=== PATIENT | female | born 1950 | race Caucasian/White ===

== ENCOUNTER 2017-10-12 10:14 | Day surgery (SDC) | payer MEDICARE, BC, OTHER ==
[2017-10-09 13:32] VITALS: BMI 23.6
--- NOTE | 2017-10-12 13:07 | OP ---
DATE OF PROCEDURE: 10/12/2017 SURGEON: Dr. Diego Morales PREOPERATIVE DIAGNOSES: 1. Intractable gastroesophageal reflux disease. 2. Dysphagia. PROCEDURE: After informed consent was obtained, the patient was placed in left lateral decubitus pos ition. Anesthesia was administered per the Anesthesia Department. Forward-viewing endoscope was ins erted into the esophagus under direct visualization with ease and passed to the second portion of the duodenum with ease. Second portion of the duodenum and duodenal bulb were normal. Pylorus, antrum, body, fundus, and cardia were normal. There was a small hiatal hernia noted. The esophagus showed a narrowing at the distal esophagus and this was dilated with a 54-German Pedraza dilator. Some mild post-dilatation bleeding was noted. Biopsies were taken from the proximal and distal esophagus to r ule out eosinophilic esophagitis. ASSESSMENT: 1. Esophageal stricture - status post dilatation. 2. Small hiatal hernia. 3. Minimal furrows in the esophagus - status post biopsy for eosinophilic esophagitis. RECOMMENDATIONS: 1. Await histopathology. 2. Repeat dilatations as needed. 3. Follow up in my office in 1 months' time.
[2017-10-12] MEDS ORDERED: PROPOFOL 200 MG/20 ML VIAL ONE (16:58)
== END 2017-10-12 13:30 | disposition home or self-care (01) ==
LOC: SDC 10:14
PROVIDERS: ATTEND Internal Medicine Gastroenterology
PROC: 0DB58ZX Excision of Esophagus, Via Natural or Artificial Opening Endoscopic, Diagnostic (ICD-10-PCS; principal; 2017-10-12)
PROC: 0D758ZZ Dilation of Esophagus, Via Natural or Artificial Opening Endoscopic (ICD-10-PCS; 2017-10-12)
DX: Z91.012 Allergy to eggs; K21.0 Gastro-esophageal reflux disease with esophagitis; K44.9 Diaphragmatic hernia without obstruction or gangrene; K22.2 Esophageal obstruction; Z91.010 Allergy to peanuts; Z91.018 Allergy to other foods; Z91.011 Allergy to milk products
CPT/HCPCS: 88305; 88312; 88313; J2704

== ENCOUNTER 2017-12-11 09:50 | Outpatient (CLI) | payer MEDICARE, BC, OTHER ==
--- NOTE | 2017-12-11 11:22 | RAD ---
LUMBAR SPINE 3 VIEWS: Date: 12/11/17 HISTORY: Vertebral body heights are maintained. There is disc space narrowing at the lumbosacral junction with 0.8 cm spondylolisthesis on the neutral view. Upon extension, it increases to 1.4 cm. Upon flexion, it remains 0.8 cm. Osteophytosis is present throughout the lower facets. IMPRESSION: Lower lumbar spondylosis including translational motion at Grade II spondylolisthesis L4-5 level as d etailed above. POS: [facility]
--- NOTE | 2017-12-11 11:29 | RAD ---
CERVICAL SPINE 3 VIEWS: Date: 12/11/17 HISTORY: Neck pain. FINDINGS: Vertebral body heights and alignment are maintained. Mild disc space narrowing at the C5-6 level. Latisha y mild osteophytosis. No abnormal translational motion upon flexion or extension. IMPRESSION: Mild cervical spondylosis. POS: [facility]
--- NOTE | 2017-12-11 12:23 | MRI ---
MRI CERVICAL SPINE WITHOUT IV CONTRAST: Date: 12/11/17 HISTORY: Spondylolisthesis cervical region. Patient complains of neck pain with spasms between shoulder blades . Numbness and tingling in fingers for several years. COMPARISON: None available. FINDINGS: Cervicomedullary junction has a normal MRI appearance. There is decreased signal intensity seen throughout the bone marrow of the cervical and visualized up per thoracic spine, which is nonspecific. C2-3 Level: There is no significant disc bulge or disc herniation. Central spinal canal and neural foramina are p atent. C3-4 Level: Mild facet degenerative changes are seen on the left. There is no significant disc bulge or disc zoe iation. The central spinal canal and neural foramina are patent. C4-5 Level: There is minimal disc bulge, but there is no significant narrowing of the central spinal canal. The n eural foramina are patent. C5-6 Level: There is mild loss of intervertebral disc height. There is mild disc osteophyte complex with uncinate process hypertrophy. Facet degenerative changes are present. There is mild left and mild to moderate right-sided neural foraminal narrowing. There is mild effacement of the ventral aspect of the subara chnoid space. C6-7 Level: There is a mild broad based disc osteophyte complex. There is effacement of the ventral subarachnoid space encroaching on the anterior aspect of the spinal cord. Neural foramina are patent. C7-T1 Level: There is no disc bulge or disc herniation. Central spinal canal and neural foramina are patent. Paravertebral soft tissues have a normal MRI appearance. IMPRESSION: 1. Decreased signal intensity involving the bone marrow. This is overall nonspecific but can be seen with anemia of chronic disease; although, marrow infiltrative process is also a possibility. 2. Mild disc degenerative changes in the cervical spine, greatest at the C5-6 level. POS: [facility]
--- NOTE | 2017-12-11 13:30 | MRI ---
MRI LUMBAR SPINE NONCONTRAST: Date: 12/11/17 HISTORY: Low back pain. Spondylolisthesis. FINDINGS: Conus medullaris has a normal appearance. There is near complete loss of T1 and T2 signal of the bone marrow. Images including the retroperitoneum show small cysts associated with the kidneys. T12-L1, L1-2, L2-3: Mild osteophytosis. Central canal and neural foramina are patent. L3-4: Mild disc bulge. Circumferential degenerative changes with mild stenosis of the central canal and eac h neural foramen. L4-5: Grade I degenerative spondylolisthesis with disc space narrowing. Posterior pseudobulge of the disc. Circumferential degenerative changes with severe stenosis of the central canal and each neural forame n. L5-S1: Mild osteophytosis. Thecal sac is patent. Osteophytosis of the facets. Moderate left foraminal stenos is. IMPRESSION: 1. Degenerative changes most severe at the L4-5 level with severe stenosis of the central canal and neural foramina. 2. Diffuse bone marrow signal abnormality may represent red marrow edema from severe anemia, fibrosi s, or metabolic disease. POS: [facility]
== END 2017-12-11 09:51 | disposition home or self-care (01) ==
LOC: TBSIIMAG 09:50
PROVIDERS: ATTEND Specialist
DX: M47.892 Other spondylosis, cervical region (principal); M47.896 Other spondylosis, lumbar region; M48.061 Spinal stenosis, lumbar region without neurogenic claudication; M99.83 Other biomechanical lesions of lumbar region; M43.12 Spondylolisthesis, cervical region; M43.16 Spondylolisthesis, lumbar region
CPT/HCPCS: 72040; 72100; 72141; 72148

== ENCOUNTER 2018-02-17 10:11 | Day surgery (SDC) | payer MEDICARE, BC, OTHER ==
[2018-02-16 10:39] VITALS: BMI 24.7
--- NOTE | 2018-02-17 12:39 | OP ---
DATE OF PROCEDURE: 02/17/2018 SURGEON: Dr. Diego Morales PREOPERATIVE DIAGNOSIS: Dysphagia. PROCEDURE: After informed consent was obtained, the patient placed in left lateral decubitus positio n. Anesthesia was administered per the Anesthesia Department. Forward-viewing endoscope was inserte d into the esophagus under direct visualization with ease and passed to the second portion of the duo denum with ease. Second portion of the duodenum and duodenal bulb were normal. The pylorus, antrum, body, fundus, and cardia were normal. Retroflexion of stomach was normal. Esophagus was normal thr oughout. A small hiatal hernia was present. A 54-Romanian Pedraza dilator was passed with little or n o resistance. Reinsertion of the endoscope showed some mild post-dilatation changes at the distal es ophagus. A 60-Romanian Pedraza was passed with some moderate resistance. Reinsertion of the endoscope showed post-dilatations at the GE junction and the upper esophagus. ASSESSMENT: 1. Esophageal strictures - status post dilatation with a 60-Romanian Pedraza dilator. 2. Small hiatal hernia. 3. Otherwise normal esophagogastroduodenoscopy. RECOMMENDATIONS: 1. Continue Zegerid. 2. Soft diet.
[2018-02-17] MEDS ORDERED: PROPOFOL 200 MG/20 ML VIAL ONE (14:50)
== END 2018-02-17 13:13 | disposition home or self-care (01) ==
LOC: SDC 10:11
PROVIDERS: ATTEND Internal Medicine Gastroenterology
PROC: 0D747ZZ Dilation of Esophagogastric Junction, Via Natural or Artificial Opening (ICD-10-PCS; principal; 2018-02-17)
PROC: 0DJ08ZZ Inspection of Upper Intestinal Tract, Via Natural or Artificial Opening Endoscopic (ICD-10-PCS; 2018-02-17)
DX: K22.2 Esophageal obstruction (principal); K44.9 Diaphragmatic hernia without obstruction or gangrene; Z91.012 Allergy to eggs; Z91.011 Allergy to milk products; Z91.010 Allergy to peanuts; Z88.0 Allergy status to penicillin; Z91.018 Allergy to other foods
CPT/HCPCS: J2704

== ENCOUNTER 2018-10-01 08:05 | Day surgery (SDC) | payer MEDICARE, BC, OTHER ==
[2018-09-30 15:29] VITALS: BMI 23.9
[2018-10-01] MEDS ORDERED: PROPOFOL 200 MG/20 ML VIAL ONE (10:39)
[2018-10-01] MEDS ORDERED: Lidocaine 1% PF 5 ML VIAL ONE (10:39)
[2018-10-01] MEDS ORDERED: Succinylcholine Chloride 20 MG/ML 10 ml SYRINGE FS ONE (10:39)
[2018-10-01] MEDS ORDERED: Benzocaine 20% Spray 60 ML CAN ONE (10:42)
--- NOTE | 2018-10-01 13:39 | OP ---
DATE OF PROCEDURE: 10/01/2018 INDICATION FOR PROCEDURE: Dysphagia, gastroesophageal reflux disease. PROCEDURE PERFORMED: Esophagogastroduodenoscopy with biopsy. DESCRIPTION OF PROCEDURE: After the risks and benefits of the procedure were explained to the patient including risks of bleeding, infection, perforation, reactions to anesthesia, aspiration and/or pain, informed consent was obtained. The patient was then taken to the endoscopy suite, where deep sedation was administered via propofol and anesthesia support. Once adequate sedation was achieved, the standard gastroscope was introduced into the mouth with intubation of the esophagus, stomach, and the proximal small intestine with the findings listed below. Adequate views of the upper GI tract were obtained, although the patient did experience acute oxygen desaturation at the beginning of the procedure that required her to be placed on a bag-mask ventilation with decrease of oxygen saturations to approximately 20%. However, she responded promptly to mask ventilation with the decreased oxygenation lasting no longer than 1 to 1.5 minutes. At which point, her oxygen saturation returned back to 100%. At which point, the procedure was completed and the patient was taken to recovery in satisfactory condition. FINDINGS: Esophagus: Normal-appearing mucosa was seen in the proximal esophagus; however, in the mid and distal esophagus, multiple erosions were seen scattered throughout the entire esophagus, but none confluent in a circumferential manner. This extended from the gastroesophageal junction to about 25 cm past the incisors. There was no evidence of associated ulcerations, mass, lesions, or active/recent bleeding. Biopsies were taken in the proximal and distal esophagus for evaluation of possible eosinophilic esophagitis; however, the pattern appeared to be more consistent with gastroesophageal reflux disease. Mild narrowing was seen in the distal esophagus at the gastroesophageal junction, but it was easily traversed with the standard gastroscope. Both the GE junction and diaphragmatic pinch were seen in approximately the same position. Stomach: Normal-appearing mucosa was seen in the gastric cardia, fundus, body, antrum, greater curvature, and incisura. There was no evidence of erosions, ulcerations, mass, lesions, or active/recent bleeding. Duodenum: Normal-appearing mucosa was seen in both the duodenal bulb and second portion of the duodenum. There was no evidence of erosions, ulcerations, mass, lesions, or active/recent bleeding. IMPRESSION: 1. LA grade C reflux mediated erosive esophagitis extending to mid esophagus at approximately 25 centimeter. 2. Mild narrowing of the distal esophagus, which could be due to a nonobstructive fibrous ring (incomplete evaluation due to oxygen desaturation). 3. Otherwise, normal-appearing mucosa in the stomach and the duodenum. RECOMMENDATIONS: 1. Would start the patient on ranitidine/Zantac 150 mg twice daily 30 to 45 minutes before breakfast and dinner for gastroesophageal reflux disease. 2. Would hold on any PPI administration given her recent history of Clostridium difficile colitis. 3. Would maintain standard acid reflux precautions (e.g., maintaining an upright posture for at least 2 hours after meals, avoiding trigger foods, and possibly elevating the head of the bed to avoid nocturnal symptoms). 4. Would have the patient follow up in the GI clinic for followup on biopsies and gastroesophageal reflux disease. Job ID: [id number]
== END 2018-10-01 12:22 | disposition home or self-care (01) ==
LOC: SDC 08:05
PROVIDERS: ATTEND Internal Medicine
PROC: 0DB58ZX Excision of Esophagus, Via Natural or Artificial Opening Endoscopic, Diagnostic (ICD-10-PCS; principal; 2018-10-01)
DX: K21.0 Gastro-esophageal reflux disease with esophagitis (principal); K22.10 Ulcer of esophagus without bleeding; F41.9 Anxiety disorder, unspecified; M19.90 Unspecified osteoarthritis, unspecified site; F32.9 Major depressive disorder, single episode, unspecified; I10 Essential (primary) hypertension; Z79.899 Other long term (current) drug therapy; Z88.0 Allergy status to penicillin; Z88.1 Allergy status to other antibiotic agents; Z88.5 Allergy status to narcotic agent; Z88.8 Allergy status to other drugs, medicaments and biological substances; Z91.010 Allergy to peanuts; Z91.011 Allergy to milk products; Z91.012 Allergy to eggs; Z91.018 Allergy to other foods; Z98.890 Other specified postprocedural states
CPT/HCPCS: 88305; 88312; 88313

== ENCOUNTER 2018-10-06 14:06 | Outpatient (CLI) | payer MEDICARE, BC, OTHER ==
--- NOTE | 2018-10-06 14:31 | ULT ---
FUS Spleen STANDARD History: [Enlarged spleen. Are 16.1.] Comparison: None Findings: Real-time grayscale and color evaluation as well as spectral analysis of the spleen was per formed. The spleen measures 17.3 x 6.9 x 5.6 cm for a volume of approximately 350 mL. Splenic artery and veins are patent. Impression: Marked splenomegaly.
== END 2018-10-06 14:07 | disposition home or self-care (01) ==
LOC: BICULT 14:06
PROVIDERS: ATTEND Family Medicine
DX: R16.1 Splenomegaly, not elsewhere classified (principal)
CPT/HCPCS: 76705

== ENCOUNTER 2019-01-10 15:15 | Outpatient (CLI) | payer MEDICARE, BC, OTHER ==
--- NOTE | 2019-01-10 15:55 | MMO ---
Bilateral MAMMO Bilat Screen [facility]. CLINICAL HISTORY: Patient is 68 years old and is seen for screening. The patient has no family history of breast cancer. The patient has a history of other cancer at age 47. VIEWS: The views performed were: bilateral craniocaudal with tomosynthesis and bilateral mediolateral oblique with tomosynthesis. FILMS COMPARED: The present examination has been compared to prior imaging studies performed at [facility] on 08/15/2015 and 04/09/2017, and at [facility] on 12/29/2011 and 05/29/2014. MAMMOGRAM FINDINGS: There are scattered fibroglandular densities. There are no suspicious masses, suspicious calcifications, or new areas of architectural distortion. IMPRESSION: THERE IS NO MAMMOGRAPHIC EVIDENCE OF MALIGNANCY. A ROUTINE FOLLOW-UP MAMMOGRAM IN 1 YEAR IS RECOMMENDED. THE RESULTS OF THIS EXAM WERE SENT TO THE PATIENT. ACR BI-RADS Category 1 - Negative MAMMOGRAPHY NOTE: 1. A negative mammogram report should not delay a biopsy if a dominant of clinically suspicious mass is present. 2. Approximately 10% to 15% of breast cancers are not detected by mammography. 3. Adenosis and dense breasts may obscure an underlying neoplasm.
== END 2019-01-10 15:16 | disposition home or self-care (01) ==
LOC: BICMAMMO 15:15
PROVIDERS: ATTEND Family Medicine
DX: Z12.31 Encounter for screening mammogram for malignant neoplasm of breast (principal); Z85.89 Personal history of malignant neoplasm of other organs and systems
CPT/HCPCS: 77063; 77067

== ENCOUNTER 2020-10-02 15:13 | Observation (INO) | payer MEDICARE, BC, OTHER ==
[2020-10-02 19:01] LABS: ALT (SGPT) 48 U/L (8-55); AST (SGOT) 54 U/L (5-34); Albumin 4.3 g/dL (3.4-4.8); Alkaline Phosphatase 227 U/L (40-110); Anion Gap 13 mmol/L (10-20); BUN (Urea Nitrogen) 24 mg/dL (9.8-20.1); Bilirubin, Total 0.4 mg/dL (0.2-1.2); Calc. Creatinine Clearance 0 mL/min (70-130); Calcium 9.3 mg/dL (7.8-10.44); Carbon Dioxide 25 mmol/L (23-31); Chloride 101 mmol/L (98-107); Globulin 2.7 g/dL (2.4-3.5); Glucose 87 mg/dL (83-110); Sodium 134 mmol/L (136-145)
[2020-10-02 19:04] LABS: Hemoglobin 12.6 g/dL (12.0-16.0); Mean Corpuscular HGB CONC 31.9 g/dL (32.0-36.0); Mean Corpuscular Hemoglobin 27.8 pg (27.0-31.0); Mean Corpuscular Volume 87.3 fL (78.0-98.0); Mean Platelet Volume 8.4 fL (7.4-10.4); Platelet Count 657 thou/uL (130-400); RBC Distribution Width 17.8 % (11.5-14.5); Red Blood Cell (RBC) Count 4.53 mill/uL (4.20-5.40)
[2020-10-02 19:21] LABS: Anisocytosis SLIGHT = 6-15 cells (100X) (0-5/hpf); Band 40 % (5-11); Differential Comment Immature Cell(s); Hypochromia SLIGHT = 6-15 cells (100X) (0-5/hpf); Lymphocytes 15 % (21-51); MDiff Complete? YES; Metamyelocyte 10 % (0-0); Monocytes 5 % (0-10); Myelocyte 12 % (0-0); Neutrophil 2 % (42-75); Nucleated RBC 12 % (0); Platelet Morphology Comment Appears Increased; Polychromasia MODERATE = 3-4 cells (100X) (0-2/hpf); Reactive Lymphocytes 12 % (0-10); Reflex for Review?? YES; Stomatocytes SLIGHT = 2-5 cells (100X) (0-1/hpf); Tear Drops SLIGHT = 2-5 cells (100X) (0-1/hpf); White Blood Cell (WBC) Count 14.6 thou/uL (4.8-10.8)
[2020-10-02 20:38] LABS: Bilirubin Negative (Negative); Blood, Urine Negative (Negative); Clarity Clear (Clear); Glucose, Urine (Dipstick) Normal (Negative); Ketone, Urine Negative (Negative); Leukocyte Negative Leu/uL (Negative); Nitrite Negative (Negative); Protein, Urine (Dipstick) Negative (Neg-Trace); Specific Gravity, Urine 1.005 (1.002-1.036); Urobilinogen Normal mg/dL (Less than 2)
[2020-10-02 22:16] LABS: Troponin I 0.027 ng/mL (< 0.028)
[2020-10-02] MEDS ORDERED: Acetaminophen 325 MG TAB PO PRN (22:35)
[2020-10-02] MEDS ORDERED: Ondansetron ODT 4 MG TAB PO PRN (22:35)
[2020-10-02] MEDS ORDERED: Calcium Carbonate 500 MG ChewTAB PO PRN (22:35)
[2020-10-02 23:08] LABS: Hemoglobin A1c 4.4 % (4.0-6.0)
[2020-10-02] MEDS ORDERED: Aspirin Chewable 81 MG TAB ONE (23:12)
[2020-10-03 00:51] VITALS: BMI 23.1
[2020-10-03 04:55] LABS: SARS-CoV-2 PCR by NAA Not Detected (NotDetected)
[2020-10-03 05:21] LABS: Cardiac Risk 4.4 (Less than 4.5)
[2020-10-03 06:16] LABS: Anisocytosis SLIGHT = 6-15 cells (100X) (0-5/hpf); Band 35 % (5-11); Differential Comment Immature Cell(s); Hemoglobin 11.6 g/dL (12.0-16.0); Large Platelets SLIGHT; Lymphocytes 27 % (21-51); MDiff Complete? YES; Mean Corpuscular Volume 87.5 fL (78.0-98.0); Mean Platelet Volume 8.2 fL (7.4-10.4); Metamyelocyte 3 % (0-0); Monocytes 4 % (0-10); Myelocyte 13 % (0-0); Neutrophil 7 % (42-75); Nucleated RBC 8 % (0); Platelet Count 529 thou/uL (130-400); Platelet Morphology Comment Appears Adequate; Polychromasia SLIGHT = 2-3 cells (100X) (0-2/hpf); RBC Distribution Width 17.4 % (11.5-14.5); Reactive Lymphocytes 8 % (0-10); Red Blood Cell (RBC) Count 4.16 mill/uL (4.20-5.40); White Blood Cell (WBC) Count 11.2 thou/uL (4.8-10.8)
[2020-10-03] MEDS ORDERED: Enoxaparin Sodium 40 MG/0.4 ML SYRINGE SC SCH (09:00)
[2020-10-03] MEDS ORDERED: RUXOLITINIB PHOSPHATE 20 MG PO SCH (09:00)
[2020-10-03] MEDS ORDERED: Aspirin 325 mg Enteric Coated Tablet PO SCH (09:00)
[2020-10-03 11:02] VITALS: BP 136/62
[2020-10-03] MEDS ORDERED: Aspirin 325 MG TAB PO SCH (11:15)
[2020-10-03] MEDS ORDERED: Artificial Tear Sol 15 ML BOT EA EYE PRN (14:05)
[2020-10-03 15:44] VITALS: TEMP 98.2
[2020-10-04] MEDS ORDERED: Aspirin 325 MG TAB PO SCH (09:00)
== END 2020-10-03 19:55 | disposition home or self-care (01) ==
LOC: ERS 15:13 → 2SE 21:20
PROVIDERS: ADMIT Student in an Organized Health Care Education/Training Program; ATTEND Student in an Organized Health Care Education/Training Program
DX: R41.82 Altered mental status, unspecified (principal); D75.81 Myelofibrosis; I08.3 Combined rheumatic disorders of mitral, aortic and tricuspid valves; Z79.899 Other long term (current) drug therapy; Z88.0 Allergy status to penicillin; Z88.1 Allergy status to other antibiotic agents; Z88.5 Allergy status to narcotic agent; Z88.8 Allergy status to other drugs, medicaments and biological substances; Z91.010 Allergy to peanuts; Z91.011 Allergy to milk products; Z91.012 Allergy to eggs; Z91.018 Allergy to other foods; Z20.822 Contact with and (suspected) exposure to COVID-19
CPT/HCPCS: 70450; 70551; 80061; 81003; 83036; 84439; 84484; 85025; 87086; 93005; 93306; 99285; G0378 ×3; U0003; U0005; 36415; 80053; 84443; 85060; 87635

== ENCOUNTER 2020-11-21 08:23 | Day surgery (SDC) | payer MEDICARE, BC, OTHER ==
[2020-11-21] MEDS ORDERED: diphenhydrAMINE 25 MG CAP PO SCH (09:15)
[2020-11-21] MEDS ORDERED: Acetaminophen 500 MG TAB PO SCH (09:15)
[2020-11-21 13:42] VITALS: BP 136/63; TEMP 97.9
== END 2020-11-21 14:03 | disposition home or self-care (01) ==
LOC: ONC/OP 08:23
PROVIDERS: ATTEND Internal Medicine Hematology & Oncology
PROC: 30233N1 Transfusion of Nonautologous Red Blood Cells into Peripheral Vein, Percutaneous Approach (ICD-10-PCS; principal; 2020-11-21)
DX: D64.9 Anemia, unspecified (principal); D69.6 Thrombocytopenia, unspecified; Z88.0 Allergy status to penicillin; Z88.1 Allergy status to other antibiotic agents; Z88.5 Allergy status to narcotic agent; Z88.8 Allergy status to other drugs, medicaments and biological substances; Z91.010 Allergy to peanuts; Z91.011 Allergy to milk products; Z91.012 Allergy to eggs; Z91.018 Allergy to other foods
CPT/HCPCS: 36430; 86850; 86900; 86901; P9016; Q0163

== ENCOUNTER 2021-06-05 08:09 | Day surgery (SDC) | payer MEDICARE, BC, OTHER ==
[2021-06-05] MEDS ORDERED: Sodium Chloride 0.9% 10 ML ONE (08:24)
[2021-06-05] MEDS ORDERED: diphenhydrAMINE 25 MG CAP ONE (08:24)
[2021-06-05] MEDS ORDERED: Acetaminophen 500 MG TAB ONE (08:24)
[2021-06-05 14:28] VITALS: BP 148/66; TEMP 98.4
== END 2021-06-05 14:38 | disposition home or self-care (01) ==
LOC: ONC/OP 08:09
PROVIDERS: ATTEND Internal Medicine Hematology & Oncology
PROC: 30233N1 Transfusion of Nonautologous Red Blood Cells into Peripheral Vein, Percutaneous Approach (ICD-10-PCS; principal; 2021-06-05)
DX: D64.9 Anemia, unspecified (principal); D69.6 Thrombocytopenia, unspecified; Z88.0 Allergy status to penicillin; Z88.1 Allergy status to other antibiotic agents; Z88.5 Allergy status to narcotic agent; Z88.8 Allergy status to other drugs, medicaments and biological substances; Z91.010 Allergy to peanuts; Z91.011 Allergy to milk products; Z91.012 Allergy to eggs; Z91.018 Allergy to other foods
CPT/HCPCS: 36430; 86850; 86900; 86901; P9016

== ENCOUNTER 2021-06-07 10:24 | Inpatient (IN) | payer MEDICARE, BC, OTHER ==
[2021-06-07 11:03] LABS: Mean Corpuscular HGB CONC 33.1 g/dL (32.0-36.0); Mean Corpuscular Hemoglobin 29.2 pg (27.0-31.0); Mean Corpuscular Volume 88.3 fL (78.0-98.0); Mean Platelet Volume 8.9 fL (7.4-10.4); Platelet Count 325 thou/uL (130-400); RBC Distribution Width 18.4 % (11.5-14.5); Red Blood Cell (RBC) Count 3.75 mill/uL (4.20-5.40); White Blood Cell (WBC) Count 13.8 thou/uL (4.8-10.8)
[2021-06-07 11:26] LABS: ALT (SGPT) 50 U/L (8-55); AST (SGOT) 48 U/L (5-34); Albumin 3.9 g/dL (3.4-4.8); Alkaline Phosphatase 59 U/L (40-110); Anion Gap 16 mmol/L (10-20); BUN (Urea Nitrogen) 12 mg/dL (9.8-20.1); Bilirubin, Total 0.4 mg/dL (0.2-1.2); Calc. Creatinine Clearance 0 mL/min (70-130); Calcium 9.6 mg/dL (7.8-10.44); Carbon Dioxide 18 mmol/L (23-31); Chloride 98 mmol/L (98-107); Globulin 2.3 g/dL (2.4-3.5); Glucose 83 mg/dL (83-110); Lipase 19 U/L (8-78); Potassium 4.2 mmol/L (3.5-5.1); Protein, Total 6.2 g/dL (5.8-8.1); Sodium 128 mmol/L (136-145)
[2021-06-07 11:45] LABS: Anisocytosis MODERATE=16-30 cells (100X) (0-5/hpf); Band 37 % (5-11); Lymphocytes 15 % (21-51); MDiff Complete? YES; Metamyelocyte 10 % (0-0); Monocytes 3 % (0-10); Myelocyte 14 % (0-0); Neutrophil 19 % (42-75); Nucleated RBC 16 % (0); Ovalocytes SLIGHT = 2-5 cells (100X) (0-1/hpf); Polychromasia SLIGHT = 2-3 cells (100X) (0-2/hpf); Reactive Lymphocytes 1 % (0-10); Toxic Granulation SLIGHT
[2021-06-07] MEDS ORDERED: Iopamidol-370 76% 500 ML 1 ML ONE (12:16)
[2021-06-07] MEDS ORDERED: Benzocaine 20% Spray 60 ML CAN ONE (12:25)
[2021-06-07] MEDS ORDERED: Morphine 4 MG/ML VIAL ONE (12:32)
[2021-06-07] MEDS ORDERED: Meropenem 1 GM in Sodium Chloride 0.9% 100 ML IVPB SCH (12:45)
[2021-06-07 13:06] LABS: Bacteria/HPF None Seen HPF (None Seen); Bilirubin Negative (Negative); Blood, Urine Negative (Negative); Clarity Clear (Clear); Glucose, Urine (Dipstick) Normal (Negative); Ketone, Urine 40 mg/dL (Negative); Leukocyte Negative Leu/uL (Negative); Nitrite Negative (Negative); Protein, Urine (Dipstick) 50 mg/dL (Neg-Trace); RBC/HPF 0-3 HPF (0-3); Specific Gravity, Urine 1.031 (1.002-1.036); Squamous Epithelial None Seen HPF (0-3); Urobilinogen Normal mg/dL (Less than 2); WBC/HPF 0-3 HPF (0-3); pH, Urine 7.5 (5.0-9.0)
[2021-06-07] MEDS ORDERED: Acetaminophen 325 MG TAB PO PRN (16:44)
[2021-06-07] MEDS ORDERED: Ondansetron ODT 4 MG TAB PO PRN (16:45)
[2021-06-07] MEDS: Ondansetron PF 4 MG/2 ML Vial IVP PRN ×2 (16:52→21:52)
[2021-06-07] MEDS: Lactated Ringer's 1,000 ML IV SCH (16:52)
[2021-06-07] MEDS ORDERED: Morphine 4 MG/ML VIAL SLOW IVP PRN ×2 (16:53→19:25)
[2021-06-07 17:19] VITALS: BMI 23.5
[2021-06-07] MEDS ORDERED: Lorazepam 2 MG/ML VIAL SLOW IVP PRN (19:25)
[2021-06-07] MEDS ORDERED: hydrALAZINE 20 MG/ML VIAL SLOW IVP PRN (19:25)
[2021-06-07] MEDS ORDERED: Ketorolac Tromethamine 30 MG/ML VIAL IVP SCH (19:45)
[2021-06-07] MEDS: Enoxaparin Sodium 40 MG/0.4 ML SYRINGE SC SCH (20:15)
[2021-06-07] MEDS: Famotidine/PF 20 mg/2ml Vial SLOW IVP SCH (20:16)
[2021-06-07] MEDS: Sodium Chloride 0.9% 1,000 ML IV SCH (22:44)
[2021-06-08] MEDS: Morphine 4 MG/ML VIAL SLOW IVP PRN ×6 (01:25→22:20)
[2021-06-08] MEDS: Lactated Ringer's 1,000 ML IV SCH (01:25)
[2021-06-08] MEDS: Ketorolac Tromethamine 30 MG/ML VIAL IVP PRN ×2 (03:42→18:40)
[2021-06-08] MEDS: Ondansetron ODT 4 MG TAB PO PRN ×2 (03:43→13:31)
[2021-06-08] MEDS: Sodium Chloride 0.9% 1,000 ML IV SCH ×3 (04:35→20:57)
[2021-06-08 07:11] LABS: ALT (SGPT) 47 U/L (8-55); AST (SGOT) 41 U/L (5-34); Alkaline Phosphatase 52 U/L (40-110); Anion Gap 12 mmol/L (10-20); BUN (Urea Nitrogen) 10 mg/dL (9.8-20.1); Bilirubin, Total 0.2 mg/dL (0.2-1.2); Calc. Creatinine Clearance 76 mL/min (70-130); Calcium 8.3 mg/dL (7.8-10.44); Carbon Dioxide 21 mmol/L (23-31); Chloride 101 mmol/L (98-107); Globulin 1.8 g/dL (2.4-3.5); Glucose 86 mg/dL (83-110); Potassium 3.8 mmol/L (3.5-5.1); Protein, Total 4.8 g/dL (5.8-8.1); Sodium 130 mmol/L (136-145)
[2021-06-08] MEDS: Famotidine/PF 20 mg/2ml Vial SLOW IVP SCH ×2 (08:16→20:55)
[2021-06-08] MEDS ORDERED: Ondansetron ODT 8 MG TAB SL PRN (08:50)
[2021-06-08] MEDS: Ondansetron PF 4 MG/2 ML Vial IVP PRN ×2 (10:40→19:40)
[2021-06-08] MEDS ORDERED: MD-Gastroview 120 ML BOT ONE (12:39)
[2021-06-08] MEDS ORDERED: Levofloxacin 500 mg/D5W 100 ml Premix Bag ONE (13:54)
[2021-06-08] MEDS ORDERED: Clindamycin/D5W 900 mg/50 ml Premix Bag ONE (13:55)
[2021-06-08] MEDS ORDERED: Clindamycin/D5W 900 MG in Premix Bag 1 BAG IVPB SCH (14:00)
[2021-06-08] MEDS ORDERED: Lidocaine 1% w/Epinephrine 1:100K 20 ML VIAL ONE (14:14)
[2021-06-08] MEDS ORDERED: Bupivacaine 0.25% HCL 30 ML VIAL ONE (14:14)
[2021-06-08] MEDS ORDERED: Fentanyl 250 MCG/5 ML VIAL ONE (14:19)
[2021-06-08] MEDS ORDERED: Glycopyrrolate 0.2 MG/ML 5 ML SYRINGE ONE (14:37)
[2021-06-08] MEDS ORDERED: PROPOFOL 200 MG/20 ML VIAL ONE (14:37)
[2021-06-08] MEDS ORDERED: Ondansetron PF 4 MG/2 ML Vial ONE (14:37)
[2021-06-08] MEDS ORDERED: Dexamethasone 20 MG/5 ML VIAL ONE (14:37)
[2021-06-08] MEDS ORDERED: Lidocaine 1% PF 5 ML VIAL ONE (14:37)
[2021-06-08] MEDS ORDERED: Ketamine 50 MG/ML (10ML VIAL) ONE (15:29)
[2021-06-08 15:44] LABS: Anisocytosis SLIGHT = 6-15 cells (100X) (0-5/hpf); Band 35 % (5-11); Eosinophils 1 % (0-10); Hemoglobin 11.3 g/dL (12.0-16.0); Lymphocytes 12 % (21-51); MDiff Complete? YES; Mean Corpuscular HGB CONC 33.3 g/dL (32.0-36.0); Mean Corpuscular Hemoglobin 29.4 pg (27.0-31.0); Mean Corpuscular Volume 88.4 fL (78.0-98.0); Mean Platelet Volume 7.7 fL (7.4-10.4); Metamyelocyte 5 % (0-0); Monocytes 10 % (0-10); Myelocyte 6 % (0-0); Neutrophil 28 % (42-75); Nucleated RBC 7 % (0); Platelet Count 771 thou/uL (130-400); Platelet Morphology Comment Appears Increased; Polychromasia SLIGHT = 2-3 cells (100X) (0-2/hpf); RBC Distribution Width 17.9 % (11.5-14.5); Red Blood Cell (RBC) Count 3.83 mill/uL (4.20-5.40); White Blood Cell (WBC) Count 13.7 thou/uL (4.8-10.8)
[2021-06-08] MEDS ORDERED: Fentanyl 100 MCG/2 ML VIAL ONE ×2 (17:00→17:19)
[2021-06-08] MEDS ORDERED: Promethazine HCl 25 MG/ML VIAL IVPB PRN (17:22)
[2021-06-08] MEDS ORDERED: Promethazine HCl 25 MG/ML VIAL IM PRN (17:22)
[2021-06-08] MEDS ORDERED: Morphine Sulfate 2 MG/ML SYRINGE SLOW IVP PRN (17:22)
[2021-06-08] MEDS ORDERED: Ondansetron HCl/PF 4 MG/2 ML Vial IVP PRN (17:22)
[2021-06-08] MEDS ORDERED: Morphine 4 MG/ML VIAL ONE (17:38)
[2021-06-08] MEDS: Acetaminophen 500 MG TAB PO SCH ×2 (17:49→20:56)
[2021-06-08] MEDS: Enoxaparin Sodium 40 MG/0.4 ML SYRINGE SC SCH (20:56)
[2021-06-09] MEDS: Ketorolac Tromethamine 30 MG/ML VIAL IVP PRN (00:35)
[2021-06-09] MEDS ORDERED: Sodium Chloride 0.9% 1,000 ML IV SCH (04:30)
[2021-06-09 07:04] LABS: ALT (SGPT) 33 U/L (8-55); AST (SGOT) 27 U/L (5-34); Albumin 2.7 g/dL (3.4-4.8); Alkaline Phosphatase 40 U/L (40-110); Anion Gap 11 mmol/L (10-20); BUN (Urea Nitrogen) 16 mg/dL (9.8-20.1); Bilirubin, Total 0.2 mg/dL (0.2-1.2); Calc. Creatinine Clearance 66 mL/min (70-130); Calcium 7.4 mg/dL (7.8-10.44); Carbon Dioxide 21 mmol/L (23-31); Chloride 106 mmol/L (98-107); Globulin 1.5 g/dL (2.4-3.5); Glucose 110 mg/dL (83-110); Magnesium 1.6 mg/dL (1.6-2.6); Potassium 4.3 mmol/L (3.5-5.1); Protein, Total 4.2 g/dL (5.8-8.1); Sodium 134 mmol/L (136-145)
[2021-06-09 08:28] LABS: Anisocytosis MODERATE=16-30 cells (100X) (0-5/hpf); Band 49 % (5-11); Eosinophils 1 % (0-10); Hemoglobin 7.1 g/dL (12.0-16.0); Large Platelets SLIGHT; Lymphocytes 9 % (21-51); MDiff Complete? YES; Macrocytosis SLIGHT = 6-15 cells (100X) (0-5/hpf); Mean Corpuscular HGB CONC 31.7 g/dL (32.0-36.0); Mean Corpuscular Hemoglobin 29.8 pg (27.0-31.0); Mean Corpuscular Volume 94.1 fL (78.0-98.0); Metamyelocyte 13 % (0-0); Monocytes 4 % (0-10); Myelocyte 7 % (0-0); Neutrophil 14 % (42-75); Nucleated RBC 7 % (0); Platelet Count 647 thou/uL (130-400); Platelet Morphology Comment Appears Increased; Poikilocytosis SLIGHT = 6-15 cells (100X) (0-5/hpf); Polychromasia SLIGHT = 2-3 cells (100X) (0-2/hpf); RBC Distribution Width 18.2 % (11.5-14.5); Red Blood Cell (RBC) Count 2.38 mill/uL (4.20-5.40); White Blood Cell (WBC) Count 8.3 thou/uL (4.8-10.8)
[2021-06-09] MEDS: Sodium Chloride 0.9% 1,000 ML IV SCH ×3 (08:40→22:39)
[2021-06-09] MEDS: Aspirin Chewable 81 MG TAB PO SCH (08:41)
[2021-06-09] MEDS: Famotidine/PF 20 mg/2ml Vial SLOW IVP SCH ×2 (08:41→22:37)
[2021-06-09] MEDS: Acetaminophen 500 MG TAB PO SCH ×4 (08:41→22:37)
[2021-06-09] MEDS: Morphine 4 MG/ML VIAL SLOW IVP PRN (14:24)
[2021-06-09 15:20] LABS: Anisocytosis SLIGHT = 6-15 cells (100X) (0-5/hpf); Band 31 % (5-11); Hemoglobin 6.3 g/dL (12.0-16.0); Lymphocytes 11 % (21-51); MDiff Complete? YES; Mean Corpuscular HGB CONC 31.9 g/dL (32.0-36.0); Mean Corpuscular Hemoglobin 28.8 pg (27.0-31.0); Mean Corpuscular Volume 90.2 fL (78.0-98.0); Metamyelocyte 15 % (0-0); Monocytes 8 % (0-10); Myelocyte 10 % (0-0); Neutrophil 24 % (42-75); Nucleated RBC 3 % (0); Platelet Count 614 thou/uL (130-400); Platelet Morphology Comment Appears Increased; Polychromasia SLIGHT = 2-3 cells (100X) (0-2/hpf); RBC Distribution Width 17.9 % (11.5-14.5); Red Blood Cell (RBC) Count 2.19 mill/uL (4.20-5.40); White Blood Cell (WBC) Count 8.1 thou/uL (4.8-10.8)
[2021-06-09] MEDS ORDERED: Clindamycin/D5W 900 MG in Premix Bag 1 BAG IVPB SCH (18:15)
[2021-06-09] MEDS ORDERED: Fentanyl 100 MCG/2 ML VIAL ONE ×2 (19:18→20:50)
[2021-06-09] MEDS ORDERED: Lidocaine 1% PF 5 ML VIAL ONE (19:43)
[2021-06-09] MEDS ORDERED: ePHEDrine 50 MG/ML VIAL ONE (19:43)
[2021-06-09] MEDS ORDERED: Rocuronium Bromide 10 MG/ML (10ML VIAL) ONE (19:43)
[2021-06-09] MEDS ORDERED: Labetalol HCl 100 MG/20 ML VIAL ONE ×2 (19:43→20:30)
[2021-06-09] MEDS ORDERED: Ondansetron PF 4 MG/2 ML Vial ONE (19:43)
[2021-06-09] MEDS ORDERED: Dexamethasone 20 MG/5 ML VIAL ONE (19:43)
[2021-06-09] MEDS ORDERED: Succinylcholine 200 MG/10 ml SYRINGE FS ONE (19:43)
[2021-06-09] MEDS ORDERED: Glycopyrrolate 0.2 MG/ML 5 ML SYRINGE ONE (19:43)
[2021-06-09] MEDS ORDERED: PROPOFOL 200 MG/20 ML VIAL ONE (19:43)
[2021-06-09] MEDS ORDERED: Ketorolac Tromethamine 30 MG/ML VIAL ONE ×2 (19:43→20:29)
[2021-06-09] MEDS ORDERED: SUGAMMADEX SODIUM 200 MG/2 ML VIAL ONE (20:26)
[2021-06-09] MEDS ORDERED: diphenhydrAMINE 50 MG/ML VIAL IM PRN ×2 (20:39→20:40)
[2021-06-09] MEDS ORDERED: Zolpidem Tartrate 5 MG TAB PO PRN ×2 (20:39→20:40)
[2021-06-09] MEDS ORDERED: Promethazine HCl 25 MG/ML VIAL IVPB PRN (20:39)
[2021-06-09] MEDS ORDERED: diphenhydrAMINE 50 MG/ML VIAL IVP PRN ×2 (20:39→20:40)
[2021-06-09] MEDS ORDERED: diphenhydrAMINE 25 MG CAP PO PRN ×2 (20:39→20:40)
[2021-06-09] MEDS ORDERED: Naloxone HCl 0.4 mg/ml Vial IV PRN ×2 (20:39→20:40)
[2021-06-09] MEDS ORDERED: Ondansetron HCl/PF 4 MG/2 ML Vial IVP PRN (20:39)
[2021-06-09] MEDS ORDERED: Promethazine HCl 25 MG/ML VIAL IM PRN ×3 (20:39→20:40)
[2021-06-09] MEDS ORDERED: Ondansetron PF 4 MG/2 ML Vial IVP PRN ×2 (20:39→20:40)
[2021-06-09] MEDS ORDERED: fentaNYL Citrate/PF 2,000 MCG in Sodium Chloride 0.9% 60 ML IV PRN (20:40)
[2021-06-09] MEDS ORDERED: Communication Order-Pharmacy FS SCH ×2 (20:45)
[2021-06-10 03:42] LABS: INR-International Normal Ratio 1.2; Prothrombin Time 15.5 sec (12.0-14.7)
[2021-06-10 03:43] LABS: PTT 39.4 sec (22.9-36.1)
[2021-06-10 03:51] LABS: Anion Gap 11 mmol/L (10-20); BUN (Urea Nitrogen) 22 mg/dL (9.8-20.1); Calc. Creatinine Clearance 71 mL/min (70-130); Calcium 7.8 mg/dL (7.8-10.44); Carbon Dioxide 17 mmol/L (23-31); Chloride 106 mmol/L (98-107); Glucose 129 mg/dL (83-110); Magnesium 1.7 mg/dL (1.6-2.6); Potassium 4.4 mmol/L (3.5-5.1); Sodium 130 mmol/L (136-145)
[2021-06-10 04:24] LABS: Anisocytosis MODERATE=16-30 cells (100X) (0-5/hpf); Band 40 % (5-11); Hemoglobin 8.1 g/dL (12.0-16.0); Lymphocytes 23 % (21-51); MDiff Complete? YES; Mean Corpuscular HGB CONC 33.3 g/dL (32.0-36.0); Mean Corpuscular Hemoglobin 29.9 pg (27.0-31.0); Metamyelocyte 3 % (0-0); Monocytes 3 % (0-10); Myelocyte 13 % (0-0); Neutrophil 16 % (42-75); Nucleated RBC 7 % (0); Platelet Count 546 thou/uL (130-400); RBC Distribution Width 16.3 % (11.5-14.5); Reactive Lymphocytes 1 % (0-10); Red Blood Cell (RBC) Count 2.71 mill/uL (4.20-5.40); Toxic Granulation SLIGHT; White Blood Cell (WBC) Count 9.6 thou/uL (4.8-10.8)
[2021-06-10] MEDS: Sodium Chloride 0.9% 1,000 ML IV SCH ×2 (06:11→13:36)
[2021-06-10] MEDS: RUXOLITINIB PHOSPHATE 15 MG PO SCH ×4 (08:01→21:04)
[2021-06-10] MEDS: Aspirin Chewable 81 MG TAB PO SCH (10:05)
[2021-06-10] MEDS: Acetaminophen 500 MG TAB PO SCH ×4 (10:06→21:00)
[2021-06-10] MEDS: Famotidine/PF 20 mg/2ml Vial SLOW IVP SCH ×2 (10:07→21:04)
[2021-06-10] MEDS: Ketorolac Tromethamine 30 MG/ML VIAL IVP PRN ×2 (13:44→21:07)
[2021-06-10 15:02] LABS: Band 24 % (5-11); Burr Cells SLIGHT = 2-5 cells (100X) (0-1/hpf); Hemoglobin 8.7 g/dL (12.0-16.0); Lymphocytes 9 % (21-51); MDiff Complete? YES; Mean Corpuscular HGB CONC 30.5 g/dL (32.0-36.0); Mean Corpuscular Hemoglobin 27.9 pg (27.0-31.0); Mean Corpuscular Volume 91.4 fL (78.0-98.0); Mean Platelet Volume 8.3 fL (7.4-10.4); Metamyelocyte 7 % (0-0); Monocytes 5 % (0-10); Myelocyte 16 % (0-0); Neutrophil 33 % (42-75); Nucleated RBC 6 % (0); Platelet Count 616 thou/uL (130-400); Platelet Morphology Comment Appears Increased; Polychromasia SLIGHT = 2-3 cells (100X) (0-2/hpf); Promyelocytes 4 % (0-0); RBC Distribution Width 16.7 % (11.5-14.5); Reactive Lymphocytes 1 % (0-10); Red Blood Cell (RBC) Count 3.13 mill/uL (4.20-5.40); White Blood Cell (WBC) Count 12.7 thou/uL (4.8-10.8)
[2021-06-11] MEDS: Sodium Chloride 0.9% 1,000 ML IV SCH ×2 (00:21→08:37)
[2021-06-11 04:03] LABS: Anion Gap 10 mmol/L (10-20); BUN (Urea Nitrogen) 14 mg/dL (9.8-20.1); Calc. Creatinine Clearance 87 mL/min (70-130); Calcium 7.9 mg/dL (7.8-10.44); Carbon Dioxide 15 mmol/L (23-31); Chloride 109 mmol/L (98-107); Glucose 90 mg/dL (83-110); Potassium 3.8 mmol/L (3.5-5.1); Sodium 130 mmol/L (136-145)
[2021-06-11] MEDS: traMADol HCl 50 MG TAB PO PRN ×2 (05:25→13:01)
[2021-06-11] MEDS: Aspirin Chewable 81 MG TAB PO SCH (08:23)
[2021-06-11] MEDS: Famotidine/PF 20 mg/2ml Vial SLOW IVP SCH ×2 (08:24→20:20)
[2021-06-11] MEDS: Acetaminophen 500 MG TAB PO SCH ×4 (08:24→20:21)
[2021-06-11] MEDS: RUXOLITINIB PHOSPHATE 15 MG PO SCH ×2 (08:34→20:21)
[2021-06-11] MEDS: DANAZOL 200 MG PO SCH ×2 (08:34→20:21)
[2021-06-11 12:13] VITALS: BP 168/71
[2021-06-11] MEDS: Ketorolac Tromethamine 30 MG/ML VIAL IVP PRN ×2 (17:32→23:30)
[2021-06-12 04:11] LABS: Anion Gap 8 mmol/L (10-20); BUN (Urea Nitrogen) 12 mg/dL (9.8-20.1); Calc. Creatinine Clearance 86 mL/min (70-130); Calcium 7.9 mg/dL (7.8-10.44); Carbon Dioxide 22 mmol/L (23-31); Chloride 105 mmol/L (98-107); Glucose 79 mg/dL (83-110); Potassium 3.7 mmol/L (3.5-5.1); Sodium 131 mmol/L (136-145)
[2021-06-12 08:05] LABS: Hemoglobin 8.3 g/dL (12.0-16.0); Mean Corpuscular HGB CONC 31.3 g/dL (32.0-36.0); Mean Corpuscular Hemoglobin 28.5 pg (27.0-31.0); Mean Corpuscular Volume 91.3 fL (78.0-98.0); Mean Platelet Volume 7.8 fL (7.4-10.4); Platelet Count 776 thou/uL (130-400); RBC Distribution Width 17.1 % (11.5-14.5); Red Blood Cell (RBC) Count 2.89 mill/uL (4.20-5.40); White Blood Cell (WBC) Count 16.7 thou/uL (4.8-10.8)
[2021-06-12] MEDS: DANAZOL 200 MG PO SCH ×2 (08:29→20:49)
[2021-06-12] MEDS: Aspirin Chewable 81 MG TAB PO SCH (08:29)
[2021-06-12] MEDS: Famotidine/PF 20 mg/2ml Vial SLOW IVP SCH ×2 (08:29→20:50)
[2021-06-12] MEDS: Acetaminophen 500 MG TAB PO SCH ×3 (08:29→17:41)
[2021-06-12] MEDS: RUXOLITINIB PHOSPHATE 15 MG PO SCH ×2 (08:29→20:49)
[2021-06-12 09:35] LABS: Band 33 % (5-11); Blast 4 % (0-0); Burr Cells SLIGHT = 2-5 cells (100X) (0-1/hpf); Lymphocytes 15 % (21-51); MDiff Complete? YES; Metamyelocyte 11 % (0-0); Monocytes 2 % (0-10); Myelocyte 27 % (0-0); Neutrophil 6 % (42-75); Nucleated RBC 4 % (0); Platelet Morphology Comment Appears Increased; Polychromasia MODERATE = 3-4 cells (100X) (0-2/hpf); Promyelocytes 2 % (0-0); Reflex for Review?? NO; Tear Drops SLIGHT = 2-5 cells (100X) (0-1/hpf)
[2021-06-12] MEDS ORDERED: Ibuprofen 600 MG TAB PO PRN (17:08)
[2021-06-12] MEDS ORDERED: Acetaminophen 500 MG TAB PO PRN (17:09)
[2021-06-13 08:18] VITALS: TEMP 97.7
[2021-06-13] MEDS: Aspirin Chewable 81 MG TAB PO SCH (08:32)
[2021-06-13] MEDS: RUXOLITINIB PHOSPHATE 15 MG PO SCH (08:32)
[2021-06-13] MEDS: Famotidine/PF 20 mg/2ml Vial SLOW IVP SCH (08:32)
[2021-06-13] MEDS: DANAZOL 200 MG PO SCH (08:33)
== END 2021-06-13 09:00 | disposition home or self-care (01) | DRG 330 ==
LOC: ERS 10:24 → T4-B 13:45 → IMCU/EMU 06-09 22:00
PROVIDERS: ADMIT Specialist; ATTEND Specialist
PROC: 0D9670Z Drainage of Stomach with Drainage Device, Via Natural or Artificial Opening (ICD-10-PCS; 2021-06-07)
PROC: 0DB80ZZ Excision of Small Intestine, Open Approach (ICD-10-PCS; principal; 2021-06-08)
PROC: 0D9 Gastrointestinal System, Drainage (ICD-10-PCS; 2021-06-08)
PROC: 0W9F0ZZ Drainage of Abdominal Wall, Open Approach (ICD-10-PCS; 2021-06-09)
PROC: 30233N1 Transfusion of Nonautologous Red Blood Cells into Peripheral Vein, Percutaneous Approach (ICD-10-PCS; 2021-06-09)
DX: K63.89 Other specified diseases of intestine (principal); D75.81 Myelofibrosis; J84.9 Interstitial pulmonary disease, unspecified; K91.870 Postprocedural hematoma of a digestive system organ or structure following a digestive system procedure; Y83.6 Removal of other organ (partial) (total) as the cause of abnormal reaction of the patient, or of later complication, without mention of misadventure at the time of the procedure; D64.89 Other specified anemias; E03.9 Hypothyroidism, unspecified; J38.1 Polyp of vocal cord and larynx; Z90.49 Acquired absence of other specified parts of digestive tract; Z91.012 Allergy to eggs; Z91.018 Allergy to other foods; Z88.1 Allergy status to other antibiotic agents; Z88.0 Allergy status to penicillin; Z88.8 Allergy status to other drugs, medicaments and biological substances; Z79.82 Long term (current) use of aspirin; Z79.899 Other long term (current) drug therapy
CPT/HCPCS: 36415; 36430; 74018; 74022; 74177; 74250; 80048; 80053; 81003; 81015; 82728; 83605; 83690; 83735; 84484; 85025; 85060; 85610; 85730; 86850; 86900; 86901; 88307; 93005; 96365; 96375; 96376; J1100; J1650; J1885; J1956; J2060; J2185; J2270; J2405; J2704; J3010; J3490; J7050; J7120; P9016; Q0162; Q9963; Q9967; S0020; S0028

== ENCOUNTER 2021-06-22 17:59 | Observation (INO) | payer MEDICARE, BC, OTHER ==
[2021-06-22] MEDS ORDERED: Ondansetron ODT 4 MG TAB PO PRN (22:27)
[2021-06-22] MEDS ORDERED: Acetaminophen 325 MG TAB PO PRN (22:27)
[2021-06-22] MEDS ORDERED: metroNIDAZOLE 500 MG TAB PO SCH (23:59)
[2021-06-23] MEDS ORDERED: metroNIDAZOLE 500 MG in Premix Bag 1 BAG IVPB SCH (01:30)
[2021-06-23 05:51] LABS: ALT (SGPT) 18 U/L (8-55); AST (SGOT) 27 U/L (5-34); Albumin 2.7 g/dL (3.4-4.8); Alkaline Phosphatase 59 U/L (40-110); Anion Gap 10 mmol/L (10-20); BUN (Urea Nitrogen) 9 mg/dL (9.8-20.1); Bilirubin, Total 0.5 mg/dL (0.2-1.2); Calc. Creatinine Clearance 85 mL/min (70-130); Calcium 8.5 mg/dL (7.8-10.44); Carbon Dioxide 27 mmol/L (23-31); Chloride 100 mmol/L (98-107); Glucose 87 mg/dL (83-110); Potassium 3.3 mmol/L (3.5-5.1); Protein, Total 4.7 g/dL (5.8-8.1); Sodium 134 mmol/L (136-145)
[2021-06-23] MEDS ORDERED: Cefepime 2 GM in Sodium Chloride 0.9% 100 ML IVPB SCH (06:00)
[2021-06-23 06:36] LABS: Hemoglobin 7.4 g/dL (12.0-16.0); Mean Corpuscular HGB CONC 32.3 g/dL (32.0-36.0); Mean Corpuscular Hemoglobin 28.5 pg (27.0-31.0); Mean Corpuscular Volume 88.1 fL (78.0-98.0); Mean Platelet Volume 8.2 fL (7.4-10.4); Platelet Count 613 thou/uL (130-400); RBC Distribution Width 16.8 % (11.5-14.5); White Blood Cell (WBC) Count 5.8 thou/uL (4.8-10.8)
[2021-06-23 06:37] LABS: Anisocytosis SLIGHT = 6-15 cells (100X) (0-5/hpf); Band 22 % (5-11); Eosinophils 1 % (0-10); Lymphocytes 35 % (21-51); MDiff Complete? YES; Metamyelocyte 1 % (0-0); Monocytes 3 % (0-10); Myelocyte 15 % (0-0); Neutrophil 21 % (42-75); Nucleated RBC 8 % (0); Platelet Morphology Comment Appears Increased; Reactive Lymphocytes 2 % (0-10)
[2021-06-23] MEDS: Heparin 5,000 UNITS/ML VIAL SC SCH ×3 (08:10→20:17)
[2021-06-23] MEDS ORDERED: Furosemide 20 MG TAB PO SCH (09:00)
[2021-06-23] MEDS ORDERED: metroNIDAZOLE 500 MG TAB PO SCH (09:00)
[2021-06-23] MEDS ORDERED: traMADol HCl 50 MG TAB PO PRN (12:40)
[2021-06-23] MEDS ORDERED: Potassium Chloride 20 MEQ TAB PO SCH (12:45)
[2021-06-23] MEDS ORDERED: Milk Of Magnesia 30 ML UDCUP PO PRN (17:32)
[2021-06-23] MEDS ORDERED: Mineral Oil ENEMA PR SCH (17:32)
[2021-06-23] MEDS ORDERED: DANAZOL 200 MG PO SCH (21:00)
[2021-06-23] MEDS ORDERED: RUXOLITINIB PHOSPHATE 20 MG PO SCH (21:00)
[2021-06-24] MEDS ORDERED: Simethicone Chewable 80 MG TAB PO PRN (00:56)
[2021-06-24 05:24] LABS: ALT (SGPT) 17 U/L (8-55); AST (SGOT) 26 U/L (5-34); Albumin 2.8 g/dL (3.4-4.8); Alkaline Phosphatase 57 U/L (40-110); Anion Gap 13 mmol/L (10-20); BUN (Urea Nitrogen) 7 mg/dL (9.8-20.1); Bilirubin, Total 0.5 mg/dL (0.2-1.2); Calc. Creatinine Clearance 90 mL/min (70-130); Calcium 8.7 mg/dL (7.8-10.44); Carbon Dioxide 29 mmol/L (23-31); Chloride 96 mmol/L (98-107); Globulin 2.1 g/dL (2.4-3.5); Glucose 90 mg/dL (83-110); Potassium 3.5 mmol/L (3.5-5.1); Protein, Total 4.9 g/dL (5.8-8.1); Sodium 134 mmol/L (136-145)
[2021-06-24 05:43] LABS: Band 32 % (5-11); Eosinophils 3 % (0-10); Hemoglobin 7.5 g/dL (12.0-16.0); Large Platelets SLIGHT; Lymphocytes 16 % (21-51); MDiff Complete? YES; Mean Corpuscular HGB CONC 32.5 g/dL (32.0-36.0); Mean Corpuscular Hemoglobin 28.7 pg (27.0-31.0); Mean Corpuscular Volume 88.2 fL (78.0-98.0); Mean Platelet Volume 8.1 fL (7.4-10.4); Metamyelocyte 3 % (0-0); Monocytes 5 % (0-10); Myelocyte 18 % (0-0); Neutrophil 23 % (42-75); Nucleated RBC 6 % (0); Platelet Count 545 thou/uL (130-400); Platelet Morphology Comment Appears Increased; RBC Distribution Width 16.5 % (11.5-14.5); Red Blood Cell (RBC) Count 2.61 mill/uL (4.20-5.40); White Blood Cell (WBC) Count 5.8 thou/uL (4.8-10.8)
[2021-06-24] MEDS ORDERED: Lidocaine 2% Viscous Solution 10 ML, Aluminum & Magnesium Hydroxide 30 ML SSW SCH (08:00)
[2021-06-24] MEDS: Heparin 5,000 UNITS/ML VIAL SC SCH ×3 (10:57→20:31)
[2021-06-24 11:38] VITALS: BMI 30.2
[2021-06-24] MEDS: DANAZOL 200 MG PO SCH (20:28)
[2021-06-25 05:36] LABS: ALT (SGPT) 15 U/L (8-55); AST (SGOT) 21 U/L (5-34); Albumin 2.7 g/dL (3.4-4.8); Alkaline Phosphatase 52 U/L (40-110); Anion Gap 9 mmol/L (10-20); BUN (Urea Nitrogen) 8 mg/dL (9.8-20.1); Bilirubin, Total 0.3 mg/dL (0.2-1.2); Calc. Creatinine Clearance 88 mL/min (70-130); Calcium 8.7 mg/dL (7.8-10.44); Carbon Dioxide 31 mmol/L (23-31); Chloride 99 mmol/L (98-107); Glucose 92 mg/dL (83-110); Potassium 3.6 mmol/L (3.5-5.1); Protein, Total 4.7 g/dL (5.8-8.1); Sodium 135 mmol/L (136-145)
[2021-06-25 06:50] LABS: Hemoglobin 7.1 g/dL (12.0-16.0); Mean Corpuscular HGB CONC 31.1 g/dL (32.0-36.0); Mean Corpuscular Volume 90.1 fL (78.0-98.0); Mean Platelet Volume 8.1 fL (7.4-10.4); Platelet Count 506 thou/uL (130-400); RBC Distribution Width 16.6 % (11.5-14.5); Red Blood Cell (RBC) Count 2.53 mill/uL (4.20-5.40); White Blood Cell (WBC) Count 5.5 thou/uL (4.8-10.8)
[2021-06-25 08:41] LABS: Band 23 % (5-11); Eosinophils 2 % (0-10); Giant Platelets SLIGHT; Hypochromia SLIGHT = 6-15 cells (100X) (0-5/hpf); Large Platelets MODERATE; Lymphocytes 27 % (21-51); MDiff Complete? YES; Metamyelocyte 6 % (0-0); Monocytes 2 % (0-10); Myelocyte 23 % (0-0); Neutrophil 8 % (42-75); Nucleated RBC 13 % (0); Platelet Morphology Comment Appears Increased; Polychromasia MODERATE = 3-4 cells (100X) (0-2/hpf); Reactive Lymphocytes 2 % (0-10); Reflex for Review?? YES
[2021-06-25] MEDS: DANAZOL 200 MG PO SCH (09:20)
[2021-06-25] MEDS: Heparin 5,000 UNITS/ML VIAL SC SCH ×2 (09:21→14:25)
[2021-06-25] MEDS ORDERED: Lisinopril 10 MG TAB PO SCH (10:15)
[2021-06-25 15:53] VITALS: BP 142/62; TEMP 98.1
[2021-06-26] MEDS ORDERED: Lisinopril 10 MG TAB PO SCH (09:00)
== END 2021-06-25 18:32 | disposition home or self-care (01) ==
LOC: 2SW 20:19
PROVIDERS: ADMIT Family Medicine; ATTEND Family Medicine
DX: J96.01 Acute respiratory failure with hypoxia (principal); K59.00 Constipation, unspecified; R10.9 Unspecified abdominal pain; D75.81 Myelofibrosis; D63.8 Anemia in other chronic diseases classified elsewhere; J38.1 Polyp of vocal cord and larynx; D69.6 Thrombocytopenia, unspecified; J84.9 Interstitial pulmonary disease, unspecified; I50.810 Right heart failure, unspecified; I08.8 Other rheumatic multiple valve diseases; R18.8 Other ascites; J90 Pleural effusion, not elsewhere classified; J98.11 Atelectasis; R16.2 Hepatomegaly with splenomegaly, not elsewhere classified; I27.29 Other secondary pulmonary hypertension; Z79.899 Other long term (current) drug therapy; Z88.0 Allergy status to penicillin; Z88.1 Allergy status to other antibiotic agents; Z88.5 Allergy status to narcotic agent; Z88.8 Allergy status to other drugs, medicaments and biological substances; Z91.010 Allergy to peanuts; Z91.011 Allergy to milk products; Z91.012 Allergy to eggs; Z91.018 Allergy to other foods; Z90.49 Acquired absence of other specified parts of digestive tract; Z20.822 Contact with and (suspected) exposure to COVID-19
CPT/HCPCS: 36415; 71046; 74177; 80053; 82728; 83880; 84145; 85025; 85060; 85652; 86140; 87633; 93306; 93970; 96374; G0378; J0692; J1644; J3490

== ENCOUNTER 2021-07-02 11:13 | Inpatient (IN) | payer MEDICARE, BC, OTHER ==
[~2021-07-02 11:13] MED LIST: Iopamidol-370 76% 500 ML 1 ML ONE
[2021-07-02 12:28] LABS: Hemoglobin 8.4 g/dL (12.0-16.0); Mean Corpuscular HGB CONC 32.3 g/dL (32.0-36.0); Mean Corpuscular Hemoglobin 28.4 pg (27.0-31.0); Platelet Count 903 thou/uL (130-400); RBC Distribution Width 17.3 % (11.5-14.5); Red Blood Cell (RBC) Count 2.96 mill/uL (4.20-5.40); White Blood Cell (WBC) Count 16.7 thou/uL (4.8-10.8)
[2021-07-02 12:35] LABS: ALT (SGPT) 21 U/L (8-55); AST (SGOT) 37 U/L (5-34); Albumin 3.7 g/dL (3.4-4.8); Alkaline Phosphatase 60 U/L (40-110); Anion Gap 14 mmol/L (10-20); BUN (Urea Nitrogen) 10 mg/dL (9.8-20.1); Bilirubin, Total 0.5 mg/dL (0.2-1.2); Calc. Creatinine Clearance 0 mL/min (70-130); Carbon Dioxide 23 mmol/L (23-31); Chloride 99 mmol/L (98-107); Globulin 2.1 g/dL (2.4-3.5); Glucose 87 mg/dL (83-110); Potassium 5.1 mmol/L (3.5-5.1); Protein, Total 5.8 g/dL (5.8-8.1); Sodium 131 mmol/L (136-145)
[2021-07-02 13:00] LABS: Band 36 % (5-11); Blast 7 % (0-0); Eosinophils 1 % (0-10); Giant Platelets SLIGHT; Large Platelets MODERATE; Lymphocytes 11 % (21-51); MDiff Complete? YES; Metamyelocyte 11 % (0-0); Monocytes 1 % (0-10); Myelocyte 21 % (0-0); Neutrophil 7 % (42-75); Nucleated RBC 10 % (0); Platelet Morphology Comment Appears Increased; Polychromasia SLIGHT = 2-3 cells (100X) (0-2/hpf); Promyelocytes 4 % (0-0); Reactive Lymphocytes 1 % (0-10); Tear Drops SLIGHT = 2-5 cells (100X) (0-1/hpf)
[2021-07-02] MEDS ORDERED: Furosemide 40 MG/4 ML VIAL ONE (15:06)
[2021-07-02] MEDS ORDERED: Acetaminophen 500 MG TAB ONE (15:06)
[2021-07-02] MEDS ORDERED: guaiFENesin ER 600 MG TAB PO SCH (15:45)
[2021-07-02] MEDS ORDERED: Nitroglycerin 2% Ointment 1 INCH/1 GM Packet ONE (17:47)
[2021-07-02] MEDS ORDERED: Acetaminophen 325 MG TAB PO PRN (18:11)
[2021-07-02] MEDS ORDERED: Acetaminophen 650 MG Suppository PR PRN (18:11)
[2021-07-02] MEDS ORDERED: guaiFENesin/DM ER PO PRN (18:42)
[2021-07-02] MEDS ORDERED: Labetalol HCl 100 MG/20 ML VIAL SLOW IVP PRN (18:44)
[2021-07-02 19:06] VITALS: BMI 23.4
[2021-07-02] MEDS ORDERED: traMADol HCl 50 MG TAB PO SCH (19:30)
[2021-07-02] MEDS ORDERED: RUXOLITINIB PHOSPHATE 20 MG PO SCH (21:00)
[2021-07-02] MEDS ORDERED: DANAZOL 200 MG PO SCH (21:00)
[2021-07-02] MEDS ORDERED: Famotidine/PF 20 mg/2ml Vial SLOW IVP SCH (21:15)
[2021-07-02] MEDS ORDERED: Famotidine/PF 20 mg/2ml Vial ONE (21:24)
[2021-07-03] MEDS ORDERED: Acetaminophen 325 MG TAB ONE ×2 (04:03→11:11)
[2021-07-03 08:00] LABS: Anion Gap 15 mmol/L (10-20); BUN (Urea Nitrogen) 8 mg/dL (9.8-20.1); Calc. Creatinine Clearance 77 mL/min (70-130); Calcium 8.8 mg/dL (7.8-10.44); Carbon Dioxide 25 mmol/L (23-31); Chloride 97 mmol/L (98-107); Glucose 78 mg/dL (83-110); Potassium 4.7 mmol/L (3.5-5.1); Sodium 132 mmol/L (136-145)
[2021-07-03] MEDS ORDERED: Enoxaparin Sodium 40 MG/0.4 ML SYRINGE ONE ×2 (08:01→08:26)
[2021-07-03 08:28] LABS: Band 35 % (5-11); Blast 4 % (0-0); Giant Platelets SLIGHT; Hemoglobin 8.1 g/dL (12.0-16.0); Large Platelets MODERATE; Lymphocytes 10 % (21-51); MDiff Complete? YES; Mean Corpuscular Hemoglobin 28.4 pg (27.0-31.0); Mean Corpuscular Volume 88.8 fL (78.0-98.0); Mean Platelet Volume 7.8 fL (7.4-10.4); Metamyelocyte 11 % (0-0); Monocytes 1 % (0-10); Myelocyte 26 % (0-0); Neutrophil 4 % (42-75); Nucleated RBC 6 % (0); Platelet Count 811 thou/uL (130-400); Platelet Morphology Comment Appears Increased; Polychromasia SLIGHT = 2-3 cells (100X) (0-2/hpf); Promyelocytes 7 % (0-0); RBC Distribution Width 17.3 % (11.5-14.5); Red Blood Cell (RBC) Count 2.85 mill/uL (4.20-5.40); White Blood Cell (WBC) Count 15.3 thou/uL (4.8-10.8)
[2021-07-03] MEDS ORDERED: Enoxaparin Sodium 40 MG/0.4 ML SYRINGE SC SCH (09:00)
[2021-07-03 10:56] LABS: SARS-CoV-2 NAA Rapid Test DETECTED (NotDetected)
== END 2021-07-03 13:52 | disposition home or self-care (01) | DRG 177 ==
LOC: ERS 11:13 → INTOOBSV 15:14 → OBSVTOIN 15:14 → ERHOLD 15:14
PROVIDERS: ADMIT Student in an Organized Health Care Education/Training Program; ATTEND Student in an Organized Health Care Education/Training Program
PROC: 8E0ZXY6 Isolation (ICD-10-PCS; principal; 2021-07-02)
DX: U07.1 COVID-19 (principal); J12.82 Pneumonia due to coronavirus disease 2019; D75.81 Myelofibrosis; I50.32 Chronic diastolic (congestive) heart failure; D72.825 Bandemia; R16.2 Hepatomegaly with splenomegaly, not elsewhere classified; D64.9 Anemia, unspecified; Z86.19 Personal history of other infectious and parasitic diseases; I27.20 Pulmonary hypertension, unspecified; J38.1 Polyp of vocal cord and larynx; E03.9 Hypothyroidism, unspecified; K21.9 Gastro-esophageal reflux disease without esophagitis; D69.6 Thrombocytopenia, unspecified; I11.0 Hypertensive heart disease with heart failure; Z87.09 Personal history of other diseases of the respiratory system; Z88.6 Allergy status to analgesic agent; Z88.1 Allergy status to other antibiotic agents; Z91.012 Allergy to eggs; Z91.011 Allergy to milk products; Z91.010 Allergy to peanuts; Z88.8 Allergy status to other drugs, medicaments and biological substances; Z91.018 Allergy to other foods; Z79.899 Other long term (current) drug therapy; Z90.49 Acquired absence of other specified parts of digestive tract; Z82.3 Family history of stroke; Z82.49 Family history of ischemic heart disease and other diseases of the circulatory system
CPT/HCPCS: 0240U; 36415; 71045; 71275; 80048; 80053; 82728; 83605; 83880; 84145; 84484; 85025; 86140; 93005; 96374; J1650; J1940; Q9967; S0028

== ENCOUNTER 2021-07-23 08:54 | Day surgery (SDC) | payer MEDICARE, BC, OTHER ==
[2021-07-23] MEDS ORDERED: diphenhydrAMINE 25 MG CAP ONE (09:44)
[2021-07-23] MEDS ORDERED: Acetaminophen 500 MG TAB ONE (09:44)
[2021-07-23 14:37] VITALS: BP 194/79; TEMP 97.9
== END 2021-07-23 14:40 | disposition home or self-care (01) ==
LOC: ONC/OP 08:54
PROVIDERS: ATTEND Internal Medicine Hematology & Oncology
PROC: 30233N1 Transfusion of Nonautologous Red Blood Cells into Peripheral Vein, Percutaneous Approach (ICD-10-PCS; principal; 2021-07-23)
DX: D64.9 Anemia, unspecified (principal); D69.6 Thrombocytopenia, unspecified; Z88.0 Allergy status to penicillin; Z88.1 Allergy status to other antibiotic agents; Z88.5 Allergy status to narcotic agent; Z88.8 Allergy status to other drugs, medicaments and biological substances; Z91.010 Allergy to peanuts; Z91.011 Allergy to milk products; Z91.012 Allergy to eggs; Z91.018 Allergy to other foods
CPT/HCPCS: 36430; 86850; 86900; 86901; P9016

== ENCOUNTER 2021-08-28 08:12 | Day surgery (SDC) | payer MEDICARE, BC, OTHER ==
[2021-08-23 13:41] VITALS: BMI 24.7
[2021-08-28] MEDS ORDERED: Lidocaine 1% MPF 2 ML VIAL ONE (09:04)
[2021-08-28] MEDS ORDERED: Ketamine 50 MG/ML (10ML VIAL) ONE (10:02)
[2021-08-28] MEDS ORDERED: PROPOFOL 200 MG/20 ML VIAL ONE (10:22)
== END 2021-08-28 12:42 | disposition home or self-care (01) ==
LOC: SDC 08:12
PROVIDERS: ATTEND Internal Medicine
PROC: 0D738ZZ Dilation of Lower Esophagus, Via Natural or Artificial Opening Endoscopic (ICD-10-PCS; principal; 2021-08-28)
PROC: 0DBK8ZX Excision of Ascending Colon, Via Natural or Artificial Opening Endoscopic, Diagnostic (ICD-10-PCS; 2021-08-28)
PROC: 0DBL8ZX Excision of Transverse Colon, Via Natural or Artificial Opening Endoscopic, Diagnostic (ICD-10-PCS; 2021-08-28)
PROC: 3E0H8KZ Introduction of Other Diagnostic Substance into Lower GI, Via Natural or Artificial Opening Endoscopic (ICD-10-PCS; 2021-08-28)
DX: Z12.11 Encounter for screening for malignant neoplasm of colon (principal); D12.2 Benign neoplasm of ascending colon; D12.3 Benign neoplasm of transverse colon; K22.2 Esophageal obstruction; K64.4 Residual hemorrhoidal skin tags; K64.8 Other hemorrhoids; K21.9 Gastro-esophageal reflux disease without esophagitis; D75.81 Myelofibrosis; J38.3 Other diseases of vocal cords; M19.90 Unspecified osteoarthritis, unspecified site; I10 Essential (primary) hypertension; Z79.899 Other long term (current) drug therapy; Z88.0 Allergy status to penicillin; Z88.1 Allergy status to other antibiotic agents; Z88.5 Allergy status to narcotic agent; Z88.8 Allergy status to other drugs, medicaments and biological substances; Z91.010 Allergy to peanuts; Z91.011 Allergy to milk products; Z91.012 Allergy to eggs; Z91.018 Allergy to other foods; Z90.49 Acquired absence of other specified parts of digestive tract
CPT/HCPCS: 88305; C1776; J2704